=== PATIENT | female | born 1985 | race Caucasian/White ===

== ENCOUNTER 2019-02-21 18:48 | Emergency (ER) | payer SELFPAY ==
[~2019-02-21] VITALS: Ht 182.9 cm; Wt 59.9 kg
[2019-02-21] MEDS ORDERED: LORAZEPAM 1 MG TABLET ONE (19:20)
[2019-02-21] MEDS ORDERED: LORAZEPAM 0.5 MG TABLET ONE (19:25)
--- NOTE | 2019-02-21 19:28 | NUR ---
Patient does not wish to proceed with medical care recommended by [facility]. Patient given information related to possible complications, up to and including , which could occur as a result of leaving the hospital at this time. Patient verbalizes understanding of risks involved due to leaving against medical advice. Patient has signed AMA form.
[2019-02-21] MEDS ORDERED: LORAZEPAM 1 MG TABLET PO ONE ×2 (19:30)
[2019-02-21 19:32] VITALS: BP 120/69
== END 2019-02-21 19:33 | disposition left against medical advice (07) ==
LOC: ER 18:49
DX: R07.89 Other chest pain (principal); F41.9 Anxiety disorder, unspecified

== ENCOUNTER 2020-04-07 12:50 | Emergency (ER) | payer OTHER ==
[~2020-04-07] VITALS: Ht 177.8 cm; Wt 61.2 kg
[2020-04-07 13:02] VITALS: BP 140/96
--- NOTE | 2020-04-07 13:57 | NUR ---
COVID 19 TESTING DONE & SENT TO LAB.
--- NOTE | 2020-04-08 23:03 | NUR ---
LAB CALLED WITH COVID 19 TEST RESULT. COVID 19 TEST IS NEGATIVE.
== END 2020-04-07 13:58 | disposition home or self-care (01) ==
LOC: ER 12:53
DX: J02.9 Acute pharyngitis, unspecified (principal); R50.9 Fever, unspecified; Z20.828 Contact with and (suspected) exposure to other viral communicable diseases
CPT/HCPCS: 99283; U0003

== ENCOUNTER 2021-05-31 06:50 | Emergency (ER) | payer OTHER ==
[~2021-05-31] VITALS: Ht 180.3 cm; Wt 60.3 kg
[2021-05-31 06:50] VITALS: BP 117/76
--- NOTE | 2021-05-31 07:04 | NUR ---
covid swab sent to lab
== END 2021-05-31 07:05 | disposition home or self-care (01) ==
LOC: ER 06:50
DX: Z20.822 Contact with and (suspected) exposure to COVID-19 (principal); R51.9 Headache, unspecified; Z88.5 Allergy status to narcotic agent
CPT/HCPCS: 87426; 99283; C9803